=== PATIENT | female | born 1995 | race Caucasian/White ===

== ENCOUNTER 2019-02-08 06:43 | Emergency (ER) | payer OTHER ==
[~2019-02-08] VITALS: Ht 152.4 cm; Wt 54.4 kg
[~2019-02-08 06:43] MED LIST: XYZAL5 MG PO; ZITHROMAX500 MG PO
[2019-02-08] MEDS ORDERED: ZOLOFT50 MG (07:22)
== END 2019-02-08 09:33 | disposition home or self-care (01) ==
LOC: ER 06:43
DX: J31.2 Chronic pharyngitis (principal)